=== PATIENT | male | born 1990 | race Asian ===

== ENCOUNTER 2020-01-09 01:41 | Emergency (ER) | payer OTHER ==
[~2020-01-09] VITALS: Ht 177.8 cm; Wt 79.5 kg
[2020-01-09] MEDS ORDERED: BACITRACIN 0.9 GM PACKET OINTMENT TP ONE (02:00)
[2020-01-09 04:20] VITALS: BP 118/83
== END 2020-01-09 04:20 | disposition home or self-care (01) ==
LOC: EMS 01:42
DX: S60.512A Abrasion of left hand, initial encounter (principal); Z20.5 Contact with and (suspected) exposure to viral hepatitis; X58.XXXA Exposure to other specified factors, initial encounter; Y93.89 Activity, other specified; Y92.89 Other specified places as the place of occurrence of the external cause; Y99.8 Other external cause status
CPT/HCPCS: 80074; 84460; 86706; 87340